=== PATIENT | female | born 1995 | race Caucasian/White ===

== ENCOUNTER 2018-08-19 11:55 | Emergency (ER) | payer SELFPAY ==
[~2018-08-19 11:55] MED LIST: CEFU250T67 PO; CYCL10TA29 PO; ERYT30GE12 TP; HYDR-653 PO; PRED-1 PO
[2018-08-19 11:58] VITALS: BP 118/75
[2018-08-19] MEDS ORDERED: ESCI20TA38 PO (12:02)
--- NOTE | 2018-08-19 12:03 | ER Report ---
History and Physical Time Seen By MD: 12:02 Hx. of Stated Complaint: sore throat, body aches, sweats for a month HPI/ROS CHIEF COMPLAINT: Aches and chills HISTORY OF PRESENT ILLNESS: This is a 22-year-old female presents to the emergency department for aches and chills. Patient states she's had cold symp toms waxing and waning for the last month. She does work at a daycare. However yesterday patient states that she had a sudden onset of aches and chills, fevers, sweating, malaise, sore throat and overall not feeling well. Intermittent nausea no vomiting. No diarrhea. No dysuria. No chest pain or shortness of breath. She does have back aches associated with her symptoms REVIEW OF SYSTEMS: Respiratory: No cough, no dyspnea. Cardiovascular: No chest pain, no palpitations. Gastrointestinal: As above. Musculoskeletal: As above. Allergies: Coded Allergies: cefuroxime (Verified Allergy, Intermediate, 08/19/18) itchy throat Penicillins (Verified Allergy, Unknown, 10/31/16) amoxicillin (Verified Allergy, Unknown, 10/31/16) Home Meds Active Scripts Albuterol Sulfate 90 Mcg/Act (PROAIR HFA 90 MCG/ACT) 8.5 Gm Hfa.aer.ad, 1-2 PUFF IH 3-4XD, #1 INHALER 0 Refills Prov:TIA ANTHONY FRYER OPERATOR-BC 08/19/18 Reported Medications Escitalopram Oxalate (LEXAPRO) 20 Mg Tablet, 10 MG PO QDAY, TAB 08/19/18 Discontinued Scripts Erythromycin Base/Ethanol (ERYTHROMYCIN 2% GEL) 30 Gm Gel..gram., 30 GM TP BID, #1 GEL Prov:RAEGAN RAMSEY DO 10/31/16 Past Medical/Surgical History Patient has a past medical and surgical history of pulmonary emboli, asthma, anterior cruciate ligament surgery. Reviewed Nurses Notes: Yes Hx Smoking: No Smoking Status: Never Smoker Hx Substance Use Disorder: No Hx Alcohol Use: No Constitutional Vital Sign - Last 24 Hours 08/19/18 11:58 Temp 97.7 Pulse 97 Resp 12 B/P (MAP) 118/75 Pulse Ox 96 O2 Delivery Room Air Physical Exam General Appearance: The patient is alert, has no immediate need for airway protection and no current signs of toxicity. Eyes: Pupils equal and round no injection. Throat: Erythema to the Posterior oropharynx, mild tonsillar hypertrophy. No exudates. Respiratory: Chest is non tender, lungs are clear to auscultation. Cardiac: regular rate and rhythm, no murmurs, clicks or rubs. Gastrointestinal: Abdomen is soft and non tender, no masses, bowel sounds normal. Musculoskeletal: Neck: Neck is supple and non tender. Mild anterior cervical chain lymphadenopathy. Extremities have full range of motion and are non tender. Skin: No rashes or lesions. DIFFERENTIAL DIAGNOSIS: After history and physical exam differential diagnosis was considered for viral pharyngitis, strep throat, influenza, viral syndrome. Medical Decision Making Data Points Laboratory Hematology Test 08/19/18 12:05 Influenza Virus Type A (PCR) Negative (NEGATIVE) Influenza Virus Type B (PCR) Negative (NEGATIVE) Group A Streptococcus Screen Negative (NEGATIVE) Chemistry Test 08/19/18 12:05 Influenza Virus Type A (PCR) Negative (NEGATIVE) Influenza Virus Type B (PCR) Negative (NEGATIVE) Group A Streptococcus Screen Negative (NEGATIVE) ED Course/Re-evaluation ED Course The patient was admitted to room. A history and physical were obtained. Differential diagnoses were considered. Patient had a negative influenza and negative strep screen. I did review these results with the patient, I did tell her this is likely a viral type illness and while pass. As she does work at a daycare I did encourage her to continue with proper hand hygiene and precautions. Recommended to drink plenty of fluids take ibuprofen or Tylenol as needed for aches and pains. Return to ER for any concerns or worsening symptoms. Patient expressed understanding is discharged home. Decision to Disposition Date: Aug 19, 2018 Decision to Disposition Time: 13:37 Depart Departure Latest Vital Signs Vital Signs Date Time Temp Pulse Resp B/P (MAP) Pulse Ox O2 Delivery O2 Flow Rate FiO2 08/19/18 11:58 97.7 97 12 118/75 96 Room Air Impression: Primary Impression: Viral syndrome Condition: Improved Disposition: HOME OR SELF-CARE New Scripts Albuterol Sulfate 90 Mcg/Act (PROAIR HFA 90 MCG/ACT) 8.5 Gm Hfa.aer.ad 1-2 PUFF IH 3-4XD, #1 INHALER 0 Refills Prov: TIA ANTHONY FRYER OPERATOR- 08/19/18 Patient Instructions: Viral Syndrome (ED) Additional Instructions: You likely have a viral illness, that will pass. During the mean time please drink plenty of water, take your regular medications as prescribed. You can take ibuprofen 800 mg every 8 hours as needed for aches and pains, or take Tylenol 500-1000 mg every 8 hours as needed for aches and pains and fevers. Continue with good hand hygiene lots of handwashing and hand sanitization his work at the daycare. Get plenty of rest. Please return to the ER for any other concerns or worsening symptoms. Also use the inhaler as needed for any asthma exacerbation he may have. TIA ANTHONY FRYER OPERATOR-BC Aug 19, 2018 12:03
[2018-08-19] MEDS ORDERED: ALBU8.5H IH (13:38)
== END 2018-08-19 13:49 | disposition home or self-care (01) ==
LOC: ER 12:02
DX: B34.9 Viral infection, unspecified (principal)
CPT/HCPCS: 87081; 87502; 87880; 99282